=== PATIENT | male | born 1965 | race Caucasian/White ===

== ENCOUNTER 2017-01-25 12:02 | Emergency (ER) | payer OTHER ==
[2017-01-25 12:12] VITALS: RESP 16; TEMP 97.5
[2017-01-25] MEDS ORDERED: LETS SOLN TOPICAL 1 EA SYR TP ONE (12:37)
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
[2017-01-25] MEDS ORDERED: IBUPROFEN 600 MG TAB PO ONE (12:44)
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
[2017-01-25 13:38] VITALS: BP 121/71; PULSE 83; O2SAT 93
== END 2017-01-25 13:37 | disposition home or self-care (01) ==
DX: S06.0X0A Concussion without loss of consciousness, initial encounter (principal); S00.81XA Abrasion of other part of head, initial encounter; S80.211A Abrasion, right knee, initial encounter; V18.4XXA Pedal cycle driver injured in noncollision transport accident in traffic accident, initial encounter; Y92.410 Unspecified street and highway as the place of occurrence of the external cause; Y99.8 Other external cause status; Y93.89 Activity, other specified

== ENCOUNTER → 2018-01-17 | Outpatient (CLI) | payer BC | LOC: FIMAGING 08:50 | PROVIDERS: ATTEND Physician Assistant Medical | DX: M50.20 Other cervical disc displacement, unspecified cervical region (principal); R90.82 White matter disease, unspecified; G35 Multiple sclerosis ==

== ENCOUNTER → 2018-10-25 | Outpatient (CLI) | payer BC | LOC: FIMAGING 09:40 | PROVIDERS: ATTEND Physician Assistant Medical | DX: G35 Multiple sclerosis (principal); M99.51 Intervertebral disc stenosis of neural canal of cervical region; M50.223 Other cervical disc displacement at C6-C7 level; G95.89 Other specified diseases of spinal cord; R90.82 White matter disease, unspecified ==

== ENCOUNTER → 2018-10-28 | Outpatient (CLI) | payer BC | LOC: FIMAGING 12:57 | PROVIDERS: ATTEND Family Medicine | DX: N48.89 Other specified disorders of penis (principal) ==